=== PATIENT | male | born 1985 | race Caucasian/White ===

== ENCOUNTER 2017-07-15 13:37 | Emergency (ER) | payer MEDICARE ==
[2017-07-15] MEDS ORDERED: MAG HYDROX/ALUMINUM HYD/SIMETH 30 ML ORAL.SUSP PO ×2 (14:45)
[2017-07-15] MEDS ORDERED: ONDANSETRON ODT 4 MG TAB.RAPDIS. PO ×2 (14:45)
== END 2017-07-15 14:55 | disposition left against medical advice (07) ==
LOC: ER 14:55
DX: R19.7 Diarrhea, unspecified (principal); R11.2 Nausea with vomiting, unspecified; R50.9 Fever, unspecified
CPT/HCPCS: 99281

== ENCOUNTER 2017-08-16 18:24 | Emergency (ER) | payer MEDICARE ==
[2017-08-16] MEDS: ONDANSETRON PF 4 MG/2 ML VIAL. IV (19:15)
[2017-08-16] MEDS: KETOROLAC 30 MG/ML INJ. IV (19:15)
[2017-08-16] MEDS: IV NORMAL SALINE 1000ML BAG 1,000 ML IV (19:15)
[2017-08-16 19:27] LABS: ADD MAN DIFF? NO
[2017-08-16 19:28] LABS: BASO # 0.1 x10^3/uL (0.0-0.2); BASO % 0 % (0-3); EOS # 0.2 x10^3/uL (0.0-0.7); EOS % 2 % (0-3); HEMATOCRIT 41.8 % (39.0-53.0); HEMOGLOBIN 14.3 g/dL (13.0-17.5); LYMPH # 1.9 x10^3/uL (1.0-4.8); LYMPH % 16 % (24-48); MEAN CORPUSCULAR HEMOGLOBIN 28 pg (25-35); MEAN CORPUSCULAR HGB CONC 34 g/dL (31-37); MEAN CORPUSCULAR VOLUME 81 fL (79-100); MONO # 0.9 x10^3/uL (0.0-1.1); MONO % 7 % (0-9); NEUT # 9.2 x10^3uL (1.8-7.7); NEUT % 75 % (31-73); PLATELET COUNT 264 x10^3/uL (140-400); RED BLOOD COUNT 5.16 x10^6/uL (4.30-5.70); RED CELL DISTRIBUTION WIDTH 14.3 % (11.5-14.5); WHITE BLOOD COUNT 12.2 x10^3/uL (4.0-11.0)
[2017-08-16 19:44] LABS: ANION GAP 9 (6-14); BLOOD UREA NITROGEN 10 mg/dL (8-26); BUN/CREATININE RATIO 8 (6-20); CALCIUM 8.4 mg/dL (8.5-10.1); CARBON DIOXIDE 28 mmol/L (21-32); CHLORIDE 101 mmol/L (98-107); CREATININE 1.2 mg/dL (0.7-1.3); GFR 71.6; GLUCOSE 109 mg/dL (70-99); POTASSIUM 3.2 mmol/L (3.5-5.1); SODIUM 138 mmol/L (136-145)
[2017-08-16 19:50] LABS: ALBUMIN 3.2 g/dL (3.4-5.0); ALBUMIN/GLOBULIN RATIO 0.7 (1.0-1.7); ALK PHOS 148 U/L (46-116); ALT (SGPT) 38 U/L (16-63); AST (SGOT) 28 U/L (15-37); LIPASE 98 U/L (73-393); TOTAL BILIRUBIN 0.5 mg/dL (0.2-1.0); TOTAL PROTEIN 7.8 g/dL (6.4-8.2)
[2017-08-16 20:06] LABS: BILIRUBIN,URINE NEGATIVE (NEG); CLARITY,URINE CLOUDY; COLOR,URINE YELLOW; GLUCOSE,URINE NEGATIVE (NEG); NITRITE,URINE NEGATIVE (NEG); PROTEIN,URINE NEGATIVE (NEG-TRACE); UROBILINOGEN,URINE 0.2 mg/dL (0.2 mg/dL)
[2017-08-16 20:17] LABS: BACTERIA,URINE 0 /HPF (0-FEW); RBC,URINE 0 /HPF (0-2); SQUAMOUS EPITHELIAL CELL,UR OCC /LPF; WBC,URINE RARE /HPF (0-4)
[2017-08-16] MEDS: POTASSIUM CHLORIDE 20 MEQ TABLET.ER. PO (20:30)
== END 2017-08-16 20:41 | disposition home or self-care (01) ==
LOC: ER 18:24
DX: R11.2 Nausea with vomiting, unspecified (principal); R19.7 Diarrhea, unspecified; E87.6 Hypokalemia
CPT/HCPCS: 36415; 80053; 81001; 83690; 85025; 96361; 96374; 96375; 99284-25; J1885; J2405; J7030

== ENCOUNTER 2018-04-08 19:11 | Emergency (ER) | payer MEDICARE ==
[~2018-04-08] VITALS: Ht 177.8 cm; Wt 111.1 kg
[~2018-04-08 19:11] MED LIST: ONDA4TAB10 SL
[2018-04-08 19:50] VITALS: BP 134/66
--- NOTE | 2018-04-08 20:21 | PHYS DOC ---
Past Medical History Past Medical History: No Pertinent History Past Surgical History: No Surgical History Alcohol Use: None Drug Use: None Adult General Chief Complaint Chief Complaint: BACK INJURY HPI HPI 32-year-old male presents with his for evaluation of right sided lumbar pain that radiates down through his right leg. He reports 9 days ago he was attempting to take a refrigerator on a kemi up a staircase and injured his back pulling it. He was seen a week ago at [facility] urgency room and diagnosed with sciatica, given prescription for pain medication and muscle relaxers. Patient denies any loss of bladder or bowel function, numbness or tingling. He reports has not been taking the medications. He does not think they 're going to work. Review of Systems Review of Systems Constitutional: Denies fever or chills [] Eyes: Denies change in visual acuity, redness, or eye pain [] HENT: Denies nasal congestion or sore throat [] Respiratory: Denies cough or shortness of breath [] Cardiovascular: No additional information not addressed in HPI [] GI: Denies abdominal pain, nausea, vomiting, bloody stools or diarrhea [] : Denies dysuria or hematuria [] All other systems were reviewed and found to be within normal limits, except as documented in this note. Allergies Allergies Allergies Coded Allergies Type Severity Reaction Last Updated Verified No Known Drug Allergies 08/16/17 No Physical Exam Physical Exam Constitutional: Well developed, well nourished, no acute distress, non-toxic appearance. [] Cardiovascular:Heart rate regular rhythm, no murmur [] Lungs & Thorax: Bilateral breath sounds clear to auscultation [] Skin: Warm, dry, no erythema, no rash. [] Back: Right lumbar paraspinous tenderness, tender over the SI joint, able to dorsiflex both feet against resistance. [] Extremities: No tenderness, no cyanosis, no clubbing, ROM intact, no edema. [] Neurologic: Alert and oriented X 3, normal motor function, normal sensory function, no focal deficits noted. [] Psychologic: Affect normal, judgement normal, mood normal. [] Current Patient Data Vital Signs Vital Signs Date Time Temp Pulse Resp B/P (MAP) Pulse Ox O2 Delivery O2 Flow Rate FiO2 04/08/18 19:50 98.2 89 18 134/66 (88) 98 Room Air 98.2 EKG EKG [] Radiology/Procedures Radiology/Procedures [] Course & Med Decision Making Course & Med Decision Making Pertinent Labs and Imaging studies reviewed. (See chart for details) [Patient was offered Toradol injection, declined. Explained that symptoms will not be resolved and a brief amount of time, it will require some time as well as medications, stretching, and he will need to follow up with primary care provider. Patient has no signs or symptoms of cauda equina syndrome. He is stable for discharge home. He will continue taking the medications as prescribed at previous ER visit. He is not interested in having any new medications tonight.] Dragon Disclaimer Dragon Disclaimer This electronic medical record was generated, in whole or in part, using a voice recognition dictation system. Departure Departure Impression: Primary Impression: Sciatica Disposition: 01 HOME, SELF-CARE Condition: STABLE Referrals: NO PCP (PCP) HUSSEIN ARTIS APRN Apr 08, 2018 20:21
== END 2018-04-08 20:25 | disposition home or self-care (01) ==
LOC: ER 19:11
DX: M54.41 Lumbago with sciatica, right side (principal)
CPT/HCPCS: 99281